=== PATIENT | female | born 1995 | race Caucasian/White ===

== ENCOUNTER 2017-10-17 17:27 | Emergency (ER) | payer OTHER ==
[2017-10-17] MEDS: LEVALBUTEROL (NEB) 0.63 MG/3 ML AMP HHN ×2 (18:56→20:15)
[2017-10-17] MEDS: ACETAMINOPHEN 500 MG TAB PO (19:03)
[2017-10-17] MEDS: DIPHENHYDRAMINE 50 MG INJ IM (19:05)
[2017-10-17] MEDS: METHYLPREDNISOLONE 125 MG INJ IM (19:05)
[2017-10-17] MEDS: OSELTAMIVIR 75 MG CAP PO (20:36)
[2017-10-17] MEDS: SOD CHLORIDE 0.9% 1,000 ML IV (20:37)
== END 2017-10-17 21:45 | disposition home or self-care (01) ==
LOC: FTE 17:27
DX: J10.1 Influenza due to other identified influenza virus with other respiratory manifestations (principal); J45.901 Unspecified asthma with (acute) exacerbation
CPT/HCPCS: 71020; 87400; 93005; 94640; 94664; 96372; 99285-25

== ENCOUNTER 2018-11-18 11:54 | Emergency (ER) | payer OTHER | END 2018-11-18 15:18 | disposition home or self-care (01) | LOC: FTE 11:54 | DX: S59.902A Unspecified injury of left elbow, initial encounter (principal); W22.8XXA Striking against or struck by other objects, initial encounter; Y92.9 Unspecified place or not applicable | CPT/HCPCS: 73080; 73080-LT; 99283-25 ==

== ENCOUNTER 2019-04-20 16:11 | Emergency (ER) | payer SELFPAY, OTHER ==
[2019-04-20 18:24] LABS: ADD UMIC YES; UR ASCORBIC ACID NEGATIVE (NEGATIVE); UR BACTERIA FEW /HPF (NONE SEEN); UR BILIRUBIN (Dip) NEGATIVE (NEGATIVE); UR BLOOD (Dip) NEGATIVE (NEGATIVE); UR CLARITY CLOUDY (CLEAR); UR COLOR YELLOW (YELLOW); UR GLUCOSE (Dip) NEGATIVE (NEGATIVE); UR KETONES (Dip) NEGATIVE (NEGATIVE); UR LEUKOCYTE ESTERASE (Dip) NEGATIVE Leu/ul (NEGATIVE); UR NITRITE (Dip) NEGATIVE (NEGATIVE); UR RBC 2 /HPF (0-5); UR SPECIFIC GRAVITY (Dip) 1.023 (1.003-1.030); UR SQUAMOUS EPITHELIAL CELL MANY /HPF (FEW); UR TOTAL PROTEIN (Dip) NEGATIVE (NEGATIVE); UR UROBILINOGEN (Dip) NEGATIVE (NEGATIVE); UR WBC 2 /HPF (0-5)
== END 2019-04-20 19:45 | disposition home or self-care (01) ==
LOC: FTE 16:11
DX: M54.5 Low back pain (principal); J45.909 Unspecified asthma, uncomplicated
CPT/HCPCS: 72100; 72220; 81001; 81025; 99284-25